=== PATIENT | female | born 1970 | race American Indian/Alaskan Native ===

== ENCOUNTER 2017-10-31 02:33 | Emergency (ER) | payer BC ==
[2017-10-31 02:39] VITALS: BP 152/94
--- NOTE | 2017-10-31 04:13 | XRay Report ---
FINAL REPORT PROCEDURE: XR ANKLE 3+V LT TECHNIQUE: LEFT ankle radiographs, AP, lateral, and oblique views. CPT 71057 HISTORY: laceration OF LEFT ANKLE COMPARISON: No prior studies are available for comparison. FINDINGS: Fracture (s) and/or Dislocation(s): None. Alignment: Normal. Joint space(s): Normal. Soft tissues: There is soft tissue laceration of the lateral aspect of the ankle.. Bone mineralization: Normal. Incidental osteoma in the distal tibia. Foreign bodies: None. Calcaneal spurring: None. IMPRESSION: There are no fractures or malalignments. There is lateral soft tissue laceration..
[2017-10-31] MEDS ORDERED: NACL 0.9% 500 ML IR ONE (05:02)
[2017-10-31] MEDS ORDERED: XYLOCAINE 2%/EPI 1:100,000 INFILTRATI ONE ×2 (05:03→06:29)
--- NOTE | 2017-10-31 05:08 | Emergency Department Report ---
- General Chief Complaint: Wound/Laceration Stated Complaint: LEFT LEG WOUND Time Seen by Provider: 10/31/17 04:56 Source: patient Mode of arrival: Ambulatory Limitations: No Limitations - History of Present Illness Initial Comments: Ms. Gomez cut her left ankle on discarded porcelain tile. Mild pain. Able to walk. Unknown last tetanus -: Sudden Location: other (left ) Extremity Location: Left: Ankle Place: home Context: accidental Associated Symptoms: pain - Related Data Allergies Allergy/AdvReac Type Severity Reaction Status Date / Time Penicillins Allergy Anaphylaxis Verified 10/31/17 02:49 ED Review of Systems ROS: Stated complaint: LEFT LEG WOUND Other details as noted in HPI Constitutional: denies: fever, malaise Skin: lesions Neurological: denies: numbness, paresthesias ED Past Medical Hx - Past Medical History Previous Medical History?: Yes Hx Hypertension: Yes - Surgical History Past Surgical History?: No - Social History Smoking Status: Never Smoker Substance Use Type: Alcohol ED Physical Exam - General Limitations: No Limitations General appearance: alert, in no apparent distress - Head Head exam: Present: atraumatic, normocephalic - Eye Eye exam: Present: normal appearance. Absent: scleral icterus, conjunctival injection - ENT ENT exam: Present: mucous membranes moist - Neck Neck exam: Present: full ROM - Respiratory Respiratory exam: Absent: respiratory distress - Neurological Exam Neurological exam: Present: alert, oriented X3 - Psychiatric Psychiatric exam: Present: normal affect, normal mood - Other Other exam information: 2+ DP pulse in the left foot. Patient has full range of motion at the ankle. She has a 8 cm horizontal laceration gaping open 1.5 cm in width, laceration is just just superior to the lateral malleolus of the left ankle. Fascia exposed. Fascia is intact. Clean laceration. ED Course Vital Signs 10/31/17 02:32 Temperature 98.8 F Pulse Rate 93 H Respiratory 19 Rate Blood Pressure 152/94 O2 Sat by Pulse 96 Oximetry - Laceration /Wound Repair Left Ankle Wound Location: lower extremity Irrigated w/ Saline (ccs): 500 Betadine Prep?: Yes Anesthesia: Lidocaine w/ Epi Volume Anesthetic (ccs): 8 Wound Debrided: minimal Number of Sutures: 14 (davonte) Layer Closure?: No Sterile Dressing Applied?: Yes ED Medical Decision Making - Medical Decision Making Complex left ankle laceration repair with davonte. Extremity neurovascularly intact. Intact motor and sensory function. Tdap given in the ED. Patient understands no weightbearing on the lower extremity is permitted until davonet are removed. Patient provided crutches. Critical care attestation.: If time is entered above; I have spent that time in minutes in the direct care of this critically ill patient, excluding procedure time. ED Disposition Clinical Impression: Laceration of left ankle Disposition: DC- TO HOME OR SELFCARE Is pt being admited?: No Does the pt Need Aspirin: No Condition: Stable Instructions: Suture Care (ED), Laceration (ED) Additional Instructions: Please have davonte removed in 14 days. Time of Disposition: 05:32
[2017-10-31] MEDS ORDERED: BOOSTRIX IM ONE (05:09)
[2017-10-31] MEDS ORDERED: NACL 0.9% IR ONE (06:29)
== END 2017-10-31 06:17 | disposition home or self-care (01) ==
LOC: ED 02:33
DX: S91.012A Laceration without foreign body, left ankle, initial encounter (principal); I10 Essential (primary) hypertension; Z88.0 Allergy status to penicillin; W26.8XXA Contact with other sharp object(s), not elsewhere classified, initial encounter; Y93.89 Activity, other specified; Y92.89 Other specified places as the place of occurrence of the external cause; Y99.8 Other external cause status
CPT/HCPCS: 90471; 90715

== ENCOUNTER 2017-11-13 13:55 | Emergency (ER) | payer BC ==
[2017-11-13 14:16] VITALS: BP 146/84
--- NOTE | 2017-11-13 18:59 | Emergency Department Report ---
Suture/Staple Removal - HPI Chief Complaint: Laceration/Recheck/Suture Stated Complaint: DAVONTE REMOVED Time Seen by Provider: 11/13/17 18:56 When Sutures or [place] Placed: 11-14 Days Ago Wound Location: left ankle ED Review of Systems ROS: Stated complaint: DAVONTE REMOVED Other details as noted in HPI Comment: All other systems reviewed and negative ED Past Medical Hx - Past Medical History Hx Hypertension: Yes - Social History Smoking Status: Never Smoker Substance Use Type: None Suture Removal Exam - Exam General: Vital signs noted. No distress. Alert and acting appropriately. Wound: No Pathologic Erythema, No Tenderness, No Drainage, No Pus, No Wound Dehiscence Other Systems: All other systems reviewed and are unremarkable. ED Course Vital Signs 11/13/17 14:09 Temperature 98.4 F Pulse Rate 69 Respiratory 16 Rate Blood Pressure 146/84 O2 Sat by Pulse 99 Oximetry ED Recheck MDM - Differential Diagnosis Wound Recheck, Suture/Staple Removal - Medical Decision Making Well appearing wound. Full ROM left ankle. NV intact foot. no evidence of infection (drainage, surrounding erythema). 14 davonte removed by CARLOS Simpson. tolerated well. Given care instructions, return precautions. DC to home. Critical care attestation.: If time is entered above; I have spent that time in minutes in the direct care of this critically ill patient, excluding procedure time. ED Disposition Clinical Impression: Visit for suture removal Disposition: DC-01 TO HOME OR SELFCARE Is pt being admited?: No Condition: Stable Instructions: Suture Removal (ED) Referrals: PRIMARY CARE, [Primary Care Provider] - 3-5 Days
[2017-11-13] MEDS ORDERED: XYLOCAINE 2% INFILTRATI ONE (19:00)
== END 2017-11-13 19:29 | disposition home or self-care (01) ==
LOC: ED 13:55
DX: S91.012D Laceration without foreign body, left ankle, subsequent encounter (principal); Y92.89 Other specified places as the place of occurrence of the external cause

== ENCOUNTER 2021-01-01 14:10 | Outpatient (CLI) | payer BC ==
--- NOTE | 2021-01-01 17:10 | Magnetic Resonance Report ---
MRI PELVIS WITHOUT AND WITH CONTRAST INDICATION / CLINICAL INFORMATION: PELVIC SWELLING, LEFT MASS. TECHNIQUE: Multiplanar, multisequence series were obtained through the pelvis. Pre and postcontrast s equences were obtained. 20 mL Clariscan injected IV. COMPARISON: None available. FINDINGS: BOWEL: No significant abnormality. APPENDIX: Not visualized. PERITONEUM: No free fluid. No free air. No fluid collection. LYMPH NODES: No significant adenopathy. ARTERIES: No significant abnormality. VEINS: No significant abnormality. URINARY BLADDER: No significant abnormality. REPRODUCTIVE ORGANS: Uterus is enlarged containing multiple fibroids. Uterus measures 9.9 x 7.0 x 6.1 cm. The largest fibroid is heterogeneous and mildly enhancing within the fundus measuring 5.2 cm. Mu ltiple smaller minimally enhancing/hypointense fibroids are present in the anterior and posterior wal ls of the uterine body. Most of the fibroids are intramural in location. No definite submucosal fibro id. Endometrial complex measures 1.3 cm in thickness. 1.8 cm left ovarian cyst, likely hemorrhagic cy st. Right ovary contains small physiologic cysts. ADDITIONAL FINDINGS: None. SKELETAL SYSTEM: No significant abnormality. IMPRESSION: 1. Enlarged uterus containing multiple fibroids. Signer Name: Mars Gramajo MD Signed: 01/01/2021 5:06 PM Workstation Name: [id number]
== END 2021-01-01 14:11 | disposition home or self-care (01) ==
LOC: MRI 14:10
PROVIDERS: ATTEND Obstetrics & Gynecology
DX: D25.9 Leiomyoma of uterus, unspecified (principal); N83.292 Other ovarian cyst, left side; R19.09 Other intra-abdominal and pelvic swelling, mass and lump
CPT/HCPCS: 72197; A9575